=== PATIENT | female | born 1960 | race Caucasian/White ===

== ENCOUNTER → 2017-03-11 | Outpatient (CLI) | payer BC ==
--- NOTE | 2017-03-13 09:06 | MM ---
Reason for exam: screening (asymptomatic). Last mammogram was performed 1 year and 4 months ago. History: Patient is postmenopausal. Took hormonal contraceptives for 8 years. Took estrogen for 2 months. Physical Findings: A clinical breast exam by your physician is recommended on an annual basis and results should be correlated with mammographic findings. MG Screening Mammo w CAD Bilateral CC and MLO view(s) were taken. Prior study comparison: November 22, 2015, bilateral MG screening mammo w CAD. November 22, 2014, bilateral MG screening mammo w CAD. There are scattered fibroglandular densities. No suspicious abnormality. ASSESSMENT: Negative, BI-RAD 1 RECOMMENDATION: Routine screening mammogram of both breasts in 1 year.
== END | disposition home or self-care (01) ==
LOC: RADMAMWWP 08:23
PROVIDERS: ATTEND Family Medicine
DX: Z12.31 Encounter for screening mammogram for malignant neoplasm of breast (principal)

== ENCOUNTER → 2020-06-05 | Outpatient (CLI) | payer BC ==
--- NOTE | 2020-06-05 16:29 | MR ---
EXAMINATION TYPE: MR brain and iac wo/w con DATE OF EXAM: 06/05/2020 COMPARISON: HISTORY: Sudden onset of Right sided hearing loss. Some Ringing in the ears. TECHNIQUE: Multiplanar, multisequence images of the brain and brainstem with small [id number] high-resolution images through the internal auditory canals is performed without and with IV contrast, utilizing 6.5 mL intravenous Gadavist . FINDINGS: Diffusion weighted images demonstrate no evidence of a recent infarct or other diffusion ab normality. There is no extra-axial fluid collection. Scattered hyperintensities are present on inve rsion recovery T2-weighted sequences within the subcortical and periventricular white matter, 5-10 le sions are present The ventricular system and cisternal spaces are normal in size and appearance. The brain volume is age appropriate. Midline structures demonstrate normal morphology. The craniocervical junction appears within normal limits. Post contrast images demonstrate no abnormal enhancement at the internal auditory canals. In specific the cerebellopontine angles are normal. Dural enhancement is present. The dural venous sinu ses appear patent. The visualized sinuses are clear and the globes are intact. IMPRESSION: No cerebellopontine angle mass, no abnormal enhancement of the internal auditory canals t o suggest acoustic neuroma. Nonspecific dural enhancement, dural is not thickened.
== END | disposition home or self-care (01) ==
LOC: RADMRIMAIN 08:06
PROVIDERS: ATTEND Nurse Practitioner Family
DX: H93.3X9 Disorders of unspecified acoustic nerve (principal); H91.90 Unspecified hearing loss, unspecified ear
CPT/HCPCS: 70553; A9585

== ENCOUNTER → 2024-06-14 | Outpatient (CLI) | payer BC ==
[2024-06-14 15:31] VITALS: BP 150/91; PULSE 67; RESP 16; TEMP 97.6
--- NOTE | 2024-06-14 16:48 | P.SLEEP ---
History of Present Illness H&P Date: 06/14/24 Chief Complaint: CROW This is a very pleasant 63-year-old female patient who is coming in for further advice regarding her recent diagnosis of obstructive sleep apnea. The patient has been complaining of excessive fatigue during the day. She has been also sleepy during the day and she carries an Patterson score of 10. She has been having morning headaches and she has been having nonrestorative sleep. She snores. She occasionally grinds her teeth. She goes to bed around 11 PM and wakes up 6:15 AM in the morning. She works for [employer] and at times she has some issues with concentration and this is affecting her functionality on the job. She also has chronic sinus disease with nasal plugging and drainage. Her other comorbidities include hypertension, history of anxiety/depression the patient remains on a combination of Celexa and BuSpar. She has acid reflux maintained on omeprazole. Her weight is up by around 15 pounds over the past 5 years. She occasionally takes naps in the afternoon and this is typically a short nap. No sleep paralysis. No hallucinations. No cataplexy. No history of motor vehicle accident because of feeling drowsy or sleepy. The patient has already undergone a home sleep study. This was done through Dr. Danita Montejo and the patient was diagnosed having mild obstructive sleep apnea with an AHI of 8.2. This was a home sleep study and the [email or web address] ApneaLink system was used to complete his home sleep study. There was no evidence of any significant nocturnal oxygen desaturation. Upon further consultation with her sleep doctor, she was advised to proceed with CPAP therapy. Nevertheless, the machine has not been ordered though delivered to her and the patient accordingly decided to come to me for further advice. Review of Systems Constitutional: Reports daytime sleepiness, Reports fatigue, Reports weight gain Eyes: denies as per HPI, denies blurred vision, denies bulging eye, denies decreased vision, denies diplopia, denies discharge, denies dry eye, denies irritation, denies itching, denies pain, denies photophobia, denies loss of peripheral vision, denies loss of vision, denies tunnel vision/blind spots Ears: deny: decreased hearing, ear discharge, earache, tinnitus Ears, nose, mouth and throat: Reports as per HPI Breasts: absent: as per HPI, change in shape, gynecomastia, masses, nipple discharge, pain, skin changes, swelling Cardiovascular: Reports as per HPI Respiratory: Reports sleep apnea, Reports snoring Gastrointestinal: Reports as per HPI Genitourinary: Reports as per HPI Menstruation: Reports as per HPI Musculoskeletal: Reports as per HPI Musculoskeletal: absent: ankle pain, ankle stiffness, ankle swelling, as per HPI, elbow pain, elbow stiffness, elbow swelling, foot pain, foot stiffness, foot swelling, hand pain, hand stiffness, hand swelling, hip pain, hip stiffness, hip swelling, knee pain, knee stiffness, knee swelling, shoulder pain, shoulder stiffness, shoulder swelling, wrist pain, wrist stiffness, wrist swelling Integumentary: Reports as per HPI Neurological: Reports as per HPI Psychiatric: Reports anxiety, Reports depression, Reports hypersomnia, Reports sleep disturbances Endocrine: Reports as per HPI, Reports fatigue Hematologic/Lymphatic: Reports as per HPI Allergic/Immunologic: Reports as per HPI, Reports allergic rhinitis Past Medical History Past Medical History: GERD/Reflux, Hypertension, Thyroid Disorder Additional Past Medical History / Comment(s): Anxiety, Depression History of Any Multi-Drug Resistant Organisms: None Reported Additional Past Surgical History / Comment(s): liver biopsy, sinus surgery, pelvic ablation, bilateral cataract surgery, colonoscopy/upper GI Past Psychological History: Anxiety, Depression Smoking Status: Never smoker Past Alcohol Use History: Rare Past Drug Use History: None Reported - Past Family History Mother Family Medical History: COPD, Coronary Artery Disease (CAD), GERD/Reflux, Myocardial Infarction ([place]) Additional Family Medical History / Comment(s): Arthritis, Father Family Medical History: Coronary Artery Disease (CAD), CVA/TIA, Thyroid Disorder Additional Family Medical History / Comment(s): Arthritis, Depression Medications and Allergies Home Medications Medication Instructions Recorded Confirmed Type Candesartan/Hydrochlorothiazid 16 mg PO DAILY 06/14/24 06/14/24 History [Candesartan/Hydrochlorothiazid 16-12.5 mg] Escitalopram [Lexapro] 20 mg PO DAILY 06/14/24 06/14/24 History Famotidine 40 mg PO DIRECTED 06/14/24 06/14/24 History Levothyroxine Sodium [Tirosint] 75 mcg PO DAILY 06/14/24 06/14/24 History Omeprazole 20 mg PO DIRECTED 11/19/24 11/19/24 History busPIRone HCL [Buspirone HCl] 10 mg PO DAILY 06/14/24 06/14/24 History Physical Exam Vitals: Vital Signs Temp Pulse Resp BP Pulse Ox 06/14/24 15:28 97.6 F 67 16 150/91 97 Intake and Output 06/14/24 06/14/24 06/14/24 06:59 14:59 22:59 Other: Weight 68.152 kg The patient appeared well nourished and normally developed. Vital signs as documented. Head exam is unremarkable. No scleral icterus or corneal arcus noted. Neck is without jugular venous distension, thyromegaly, or carotid bruits. Carotid upstrokes are brisk bilaterally. Lungs are clear to auscultation and percussion. Cardiac exam reveals the PMI to be normally sized and situated. Rhythm is regular. First and second heart sounds normal. No murmurs, rubs or gallops. Abdominal exam reveals normal bowel sounds, no masses, no organomegaly and no aortic enlargement. Extremities are nonedematous and both femoral and pedal pulses are normal. Examination of the skin revealed no evidence of significant rashes, suspicious appearing nevi or other concerning lesions. Neurologically, the patient is awake and alert and the patient does not have any focal neurological deficit. Cranial nerves are essentially intact. Assessment and Plan Plan: Obstructive sleep apnea, mild in severity with an AHI of 8.2 without significant nocturnal oxygen desaturation. This has been established by home sleep study that was done under the supervision of Dr. Danita Montejo. The patient is interested in therapy at this point as the patient is having excessive fatigue and sleepiness and her current Patterson score is at 10. Hypertension Chronic sinus disease Fatty liver disease Acid reflux Body mass index of 28.3 with around 15 pounds weight gain over the past 5 years. Plan I had a lengthy discussion with the patient. I discussed the results of the home sleep study I informed the patient that her symptoms are out of proportion to the severity of the sleep apnea noted on her home sleep study. Nevertheless, I gave her the option of CPAP therapy as there is no other clear cause for an underlying symptoms. It is possible that her symptoms are originating from her mild obstructive sleep apnea. However, I am not certain of the outcome and treatment success. At the end of our discussion, we decided to give her a trial of CPAP therapy and the patient will be given a ResMed 11 CPAP unit at a pressure of 5 /10 cm of water with appropriate mask interface. She is a mouth breather and the patient will be given an AirFit F20 or AirFit F40 fullface mask. The patient will see me back in the short-term follow-up in 30 to 60 days to assess her clinical response on CPAP therapy. If the results are suboptimal, will recommend further workup regarding her ongoing symptoms. Encourage weight loss Maintain good sleep hygiene measures Maintain regular sleep schedule Will continue to follow Sleep Note - Sleep Data ESS Total: 10 - Sleep Note Sleep Note: Temperature: 97.6 F Pulse Rate: 67 Respiratory Rate: 16 Blood Pressure: 150/91 SpO2: 97 Height: 5 ft 1 in Weight: 68.152 kg BMI: Neck Circumference: 14
== END ==
LOC: 3 N SLEEP 14:32
PROVIDERS: ATTEND Internal Medicine Critical Care Medicine
DX: G47.33 Obstructive sleep apnea (adult) (pediatric) (principal); I10 Essential (primary) hypertension; R53.83 Other fatigue; K76.0 Fatty (change of) liver, not elsewhere classified; J34.89 Other specified disorders of nose and nasal sinuses; K21.9 Gastro-esophageal reflux disease without esophagitis; R63.5 Abnormal weight gain; Z68.28 Body mass index [BMI] 28.0-28.9, adult; G47.10 Hypersomnia, unspecified; Z79.899 Other long term (current) drug therapy
CPT/HCPCS: 99211